=== PATIENT | male | born 1940 | race Two or more races ===

== ENCOUNTER 2017-02-23 21:45 | Emergency (ER) | payer OTHER ==
[~2017-02-23] VITALS: Ht 170.2 cm; Wt 81.6 kg
[~2017-02-23 21:45] MED LIST: BP MEDICATION
[2017-02-23] MEDS ORDERED: ONDANSETRON HCL/PF 4 MG/2 ML VIAL ONE (21:56)
[2017-02-23] MEDS ORDERED: IV NS 0.9% 500 ML IV ONE (21:56)
[2017-02-23] MEDS ORDERED: IV SET PRIMARY 1 EA INFUS.SET MC ONE (21:56)
--- NOTE | 2017-02-23 21:58 | NUR ---
PT BIB [facility] WITH A C/O N/V AND DIZZINESS. PT HAS NOTABLE NYSTAGMUS AND IS VERY DIZZY. PT IS ON THE MONITOR AND CONTINUOUS PULSE OX. VSS
[2017-02-23] MEDS ORDERED: IV NS 0.9% 500 ML BAG IV ONE (22:00)
[2017-02-23] MEDS ORDERED: ONDANSETRON HCL/PF 4 MG/2 ML VIAL IVP ONE (22:00)
--- NOTE | 2017-02-23 22:00 | NUR ---
PT IS ACTIVELY VOMITTING.
--- NOTE | 2017-02-23 22:03 | NUR ---
PT MEDICATED ORDERED.
[2017-02-23] MEDS ORDERED: DIAZEPAM 5 MG/ML 2 ML DISP.SYRIN ONE (22:10)
--- NOTE | 2017-02-23 22:23 | NUR ---
PT APPEARS TO BE RESTING COMFORTABLY WITH NO S/S OF PAIN OR DISTRESS. PT'S IS AT THE BEDSIDE. RESP EVEN AND UNLABORED.
--- NOTE | 2017-02-23 22:28 | NUR ---
PT STARTED TO DESATURATE TO 89% ON RA. PT WAS PLACED ON NC AT 2L O2.
[2017-02-23 22:30] LABS: CALCIUM, SERUM 8.8 mg/dL (8.5-10.1); CARBON DIOXIDE 27 mmol/L (21-32); CHLORIDE 104 mmol/L (98-107); CREATININE 1.2 mg/dL (0.6-1.3); GLUCOSE 146 mg/dL (74-106); POTASSIUM 3.7 mmol/L (3.5-5.1); SODIUM SERUM 141 mmol/L (136-145); UREA NITROGEN, BLOOD 17 mg/dL (7-18)
[2017-02-23] MEDS ORDERED: DIAZEPAM 5 MG/ML 2 ML DISP.SYRIN IV ONE (22:30)
[2017-02-23 22:35] LABS: BASOPHILS % (AUTO) 0.3 % (0.0-2.0); EOSINOPHILS # (AUTO) 0.2 /CMM (0.0-0.7); HEMATOCRIT 41 % (39-51); HEMOGLOBIN 13.3 g/dL (13.5-17.5); LYMPHOCYTES % (AUTO) 36.5 % (20.0-44.0); MEAN CORPUSCULAR HEMOGLOBIN 28 PG (26.0-33.0); MEAN CORPUSCULAR HGB CONC 32 g/dl (31.0-36.0); MEAN CORPUSCULAR VOLUME 85 fL (80-96); MONOCYTES % (AUTO) 11.5 % (2.0-12.0); NEUTROPHILS # (AUTO) 4.1 /CMM (1.8-8.9); NEUTROPHILS % (AUTO) 49.7 % (43.0-81.0); PLATELET COUNT (AUTO) 178 /CMM (150-450); PROTHROMBIN TIME 10.7 SECS (9.5-12.7); RDW COEFFICIENT OF VARIATION 12.7 (11.5-15.0); RED BLOOD CELL COUNT(AUTO) 4.83 MIL/uL (4.5-6.0); WHITE BLOOD COUNT (AUTO) 8.4 K/uL (4.3-11.0)
[2017-02-23 22:39] LABS: TROPONIN I < 0.017 ng/mL (0.00-0.056)
--- NOTE | 2017-02-23 22:44 | NUR ---
PT LEFT FOR CT VIA GURNEY.
--- NOTE | 2017-02-23 23:05 | NUR ---
PT RETURNED FROM CT.
--- NOTE | 2017-02-23 23:32 | NUR ---
PT APPEARS TO BE RESTING COMFORTABLY WITH NO S/S OF PAIN OR DISTRESS.
--- NOTE | 2017-02-24 00:23 | NUR ---
PT IS RESTING COMFORTABLY WITH NO S/S OF PAIN OR DISTRESS.
--- NOTE | 2017-02-24 00:24 | NUR ---
CALLING [facility] [phone] FOR REPORT. SPOKE TO CHARGE NURSE.
[2017-02-24] MEDS ORDERED: MECLIZINE HCL 12.5 MG TABLET PO ONE (00:30)
[2017-02-24] MEDS ORDERED: MECLIZINE HCL 25 MG TABLET ONE (00:41)
--- NOTE | 2017-02-24 00:47 | NUR ---
PT REC'D MEDICATION ORDERED.
[2017-02-24 00:56] VITALS: BP 147/86
== END 2017-02-24 00:59 ==
LOC: ER 21:46
DX: H81.10 Benign paroxysmal vertigo, unspecified ear (principal); I10 Essential (primary) hypertension; N40.0 Benign prostatic hyperplasia without lower urinary tract symptoms
CPT/HCPCS: 36415; 70450-TC; 71010-TC; 80048-TC; 82962-TC; 84484-TC; 85025-TC; 85730-TC; A4606; J2405; J3360; J7040; J8597; Z7610